=== PATIENT | male | born 1995 | race Caucasian/White ===

== ENCOUNTER 2019-11-18 10:44 | Emergency (ER) | payer BC ==
[~2019-11-18] VITALS: Ht 185.4 cm; Wt 83.0 kg
--- NOTE | 2019-11-18 11:22 | NUR ---
PT. SITTING WITH PARENTS. IN LOBBY. NOT HI OR SI
--- NOTE | 2019-11-18 12:18 | NUR ---
PT HAVING SEIZURE IN LOBBY WITNESSED BY MOTHER, LIPS BLUE, FOAMING FROM MOUTH, UNRESPONSIVE, TRANSPORTED IN WHEEL CHAIR TO 4, PT CONFUSED, SWINGING. JOSUE ROSAS, TECH AND SECURITY, AND EMS AT DOOR HELPED CARRY PT TO [facility].
[2019-11-18] MEDS ORDERED: levetiracetam inj 1,000 MG in normal saline 100ml IV soln 90 ML IV STA (12:23)
[2019-11-18] MEDS ORDERED: normal saline 1000ML IV soln IVB ONE ×2 (12:25→13:25)
[2019-11-18] MEDS ORDERED: LORazepam 2 mg/ml vial IV ONE (12:25)
[2019-11-18] MEDS ORDERED: levetiracetam-NS 1000mg/100ml 100 ML IV ONE (12:35)
[2019-11-18] MEDS ORDERED: NO HOME MEDS (12:37)
[2019-11-18 12:38] LABS: BASOPHILS # (AUTO) 0.1 X10'3 (0-0.2); BASOPHILS % (AUTO) 0.6 % (0-1); EOSINOPHILS % (AUTO) 0 % (0-6); HEMATOCRIT 46.3 % (42.0-52.0); HEMOGLOBIN 15.4 g/dl (14.0-17.9); LYMPHOCYTES # (AUTO) 4.1 X10'3 (1.1-4.8); MEAN CORPUSCULAR HGB CONC 33.2 g/dL (33.0-36.5); MEAN CORPUSCULAR VOLUME 108.4 FL (78-98); MEAN PLATELET VOLUME 8.8 FL (7.4-10.4); MONOCYTES # (AUTO) 1.7 X10'3 (0-0.9); MONOCYTES % (AUTO) 10.5 % (2-12); NEUTROPHILS # (AUTO) 9.9 X10'3 (1.8-7.7); NEUTROPHILS % (AUTO) 62.9 % (42-75); PLATELET COUNT 144 X10'3 (140-440); RED BLOOD COUNT 4.27 X10'6 (4.70-6.10); RED CELL DISTRIBUTION WIDTH 14.6 % (11.5-14.5); WHITE BLOOD COUNT 15.8 X10'3 (4.5-11.0)
[2019-11-18 13:03] LABS: ALBUMIN 4.8 G/DL (3.4-5.0); ALBUMIN/GLOBULIN RATIO 1.2 (1.1-1.5); ALKALINE PHOSPHATASE 67 IU/L (46-116); ANION GAP 34 (8-16); ASPARTATE AMINO TRANSFERASE 69 U/L (10-37); BILIRUBIN,TOTAL 1.3 MG/DL (0.1-1.0); BLOOD UREA NITROGEN 12 MG/DL (7-18); BUN/CREATININE RATIO 8.8 (5.4-32.0); CHLORIDE 95 MMOL/L (99-107); CREATININE 1.36 MG/DL (0.60-1.10); ETHANOL < 0.010 GM/DL (0.0-0.010); GLUCOSE 135 MG/DL (70-104); SODIUM 139 MMOL/L (135-145); TOTAL PROTEIN 8.8 G/DL (6.4-8.2); eGFR 64 ML/MIN
[2019-11-18 13:21] LABS: POTASSIUM 2.6 MMOL/L (3.5-5.1); TOTAL CARBON DIOXIDE 10.1 MMOL/L (24-32)
[2019-11-18] MEDS ORDERED: potassium Cl 20 mEq SR tablet PO STA (13:25)
[2019-11-18 13:38] LABS: CLARITY,URINE CLEAR (Clear); COLOR,URINE YELLOW (Yellow); GLUCOSE, URINE NEGATIVE (Neg); KETONES,URINE 40 mg/dl (Neg); LEUKOCYTE ESTERASE ,URINE NEGATIVE (Neg); NITRITES, URINE NEGATIVE (Neg); OCCULT BLOOD,URINE SMALL (Neg); PROTEIN,URINE 100 mg/dl (Neg); UROBILINOGEN,URINE 0.2 E.U/dL (0.2-1.0)
[2019-11-18 13:44] LABS: UA COLLECTION TYPE VOIDED
[2019-11-18 13:48] LABS: MUCUS STRANDS MODERATE /LPF (Neg); SQUAMOUS EPITHELIAL CELL,UR FEW /LPF (FEW)
[2019-11-18 13:48] LABS: ALANINE AMINOTRANSFERASE 82 U/L (12-78)
[2019-11-18 13:51] LABS: RBC,URINE 0-2 /HPF (0-2); WBC,URINE 0-4 /HPF (0-4)
[2019-11-18 13:52] LABS: ACETAMINOPHEN 9.5 UG/ML (10-30)
[2019-11-18 13:53] LABS: BACTERIA,URINE FEW /HPF (Neg); TRANSITIONAL EPI CELLS,URINE FEW /HPF; YEAST FEW /HPF (NEGATIVE)
[2019-11-18 13:57] LABS: URINE AMPHETAMINE SCREEN NEGATIVE (Neg); URINE BARBITUATE SCREEN NEGATIVE (Neg); URINE BENZODIAZEPINES SCREEN NEGATIVE (Neg); URINE CANNABINOID SCREEN NEGATIVE (Neg); URINE COCAINE SCREEN NEGATIVE (Neg); URINE METHADONE SCREEN NEGATIVE (Neg); URINE OPIATE SCREEN NEGATIVE (Neg); URINE PHENCYCLIDINE SCREEN NEGATIVE (Neg)
[2019-11-18] MEDS ORDERED: OLAN10TA19 PO ×2 (15:21→15:26)
[2019-11-18] MEDS ORDERED: OLANZapine 5mg rapidly disint. tablet PO ONE (15:30)
[2019-11-18 15:49] LABS: ALBUMIN 3.5 G/DL (3.4-5.0); ANION GAP 16 (8-16); BLOOD UREA NITROGEN 8 MG/DL (7-18); BUN/CREATININE RATIO 11.3 (5.4-32.0); CALCIUM 7.5 MG/DL (8.5-10.1); CHLORIDE 102 MMOL/L (99-107); CREATININE 0.71 MG/DL (0.60-1.10); GLUCOSE 61 MG/DL (70-104); POTASSIUM 3.1 MMOL/L (3.5-5.1); SODIUM 140 MMOL/L (135-145); TOTAL CARBON DIOXIDE 22.5 MMOL/L (24-32); eGFR > 90 ML/MIN
[2019-11-18 15:51] VITALS: BP 133/97
== END 2019-11-18 16:26 | disposition home or self-care (01) ==
LOC: ER 10:45
DX: R56.9 Unspecified convulsions (principal); R44.3 Hallucinations, unspecified; R41.0 Disorientation, unspecified
CPT/HCPCS: 36415; 70450; 80048; 80053; 80305; 80320; 80329; 81001; 82948; 83605; 84443; 85025; 93005; 96374; 96375; 99291; J1953; J2060; J7030